=== PATIENT | male | born 1995 | race Caucasian/White ===

== ENCOUNTER 2017-12-24 15:45 | Inpatient (IN) | payer MEDICAID, OTHER ==
[2017-12-24 16:17] LABS: Urine Appearance Clear; Urine Blood 1+ (Negative); Urine Color Yellow; Urine Ketones Negative (Negative); Urine Protein Negative (Negative); Urine Specific Gravity 1.009 (1.010-1.030); Urine Urobilinogen Negative (Negative)
[2017-12-24 16:55] LABS: ABS Basophils 0.1 10^3/ul (0-0.2); ABS Eosinophils 0.1 10^3/ul (0-0.6); ABS Lymphocytes 2.2 10^3/ul (1.0-4.8); ABS Monocytes 0.8 10^3/ul (0-0.8); ABS Neutrophils 7.3 10^3/ul (1.5-7.7); ABS Nucleated RBC 0 10^3/ul; Eosinophil % 0.9 % (0-6); Hematocrit 48 % (42-52); Hemoglobin 17.1 g/dl (14.0-18.0); Lymphocyte % 20.9 % (25-47); Mean Corpuscular HGB Conc 36 g/dl (31-36); Mean Corpuscular Hemoglobin 34 pg (27-31); Mean Corpuscular Volume 95 fL (80-94); Mean Platelet Volume 8 um3 (7.4-10.4); Nucleated Red Blood Cells % 0.1; Platelet Count 242 10^3/ul (150-450); Red Blood Count 5.08 10^6/ul (4.0-5.4); Red Cell Distribution Width 13 % (10.5-15); White Blood Count 10.5 10^3/ul (3.5-10.8)
[2017-12-24 16:59] LABS: EGFR Non-African American 124.1 (>60)
--- NOTE | 2017-12-24 19:13 | ED ---
Jose Angel Greenberg Elizabeth, scribed for Inocencio Ugarte MD on 12/24/17 at 1618 . Psychiatric Complaint - HPI Summary HPI Summary: The patient is a 22 year old male presenting to the emergency department with suicidal thoughts. Per triage note, patient has been having these thoughts for several days and also has homicidal ideation. The patient denies any injuries. Patient notes that he has consumed alcohol and taken drugs recently. - History Of Current Complaint Chief Complaint: EDMentalHealth Time Seen by Provider: 12/24/17 16:00 Hx Obtained From: Patient Onset/Duration: Lasting Days, Still Present Timing: Constant Has Suicidal: Reports: With A Plan Has Homicidal: Reports: With A Plan Ingestion History: Type/Name Of Drug - Methamphetamine - Allergies/Home Medications Allergies/Adverse Reactions: Allergies Allergy/AdvReac Type Severity Reaction Status Date / Time amoxicillin Allergy Anaphylatic Verified 12/24/17 15:53 Shock clindamycin Allergy Rash Verified 12/24/17 15:53 Penicillins Allergy Rash Verified 12/24/17 15:53 PMH/Surg Hx/FS Hx/Imm Hx Sensory History: Denies: Hx Legally Blind EENT History: Denies: Hx Deafness Infectious Disease History: No Infectious Disease History: Denies: Traveled Outside the [place] in Last 30 Days - Social History Alcohol Use: Occasionally Substance Use Type: Reports: Other Substance Use Comment - Amount & Last Used: methamphetamine Smoking Status (MU): Current Some Day Smoker Review of Systems Negative: Epistaxis Psychological: Other - Suidical and homicidal ideation All Other Systems Reviewed And Are Negative: Yes Physical Exam - Summary Physical Exam Summary: General: well-appearing, no pain distress Skin: warm, color reflects adequate perfusion, dry Head: normal Eyes: EOMI, GAURANG ENT: normal Neck: supple, nontender Respiratory: CTA, breath sounds present Cardiovascular: RRR Abdomen: soft, nontender Bowel: present Musculoskeletal: normal, strength/ROM intact Neurological: normal, sensory/motor intact, A&O x3 Psychological: affect/mood appropriate Triage Information Reviewed: Yes Vital Signs On Initial Exam: Initial Vitals Temp Pulse Resp BP Pulse Ox 98.5 F 143 14 124/74 97 12/24/17 15:53 12/24/17 15:53 12/24/17 15:53 12/24/17 15:53 03/18/18 15:53 Vital Signs Reviewed: Yes Diagnostics - Vital Signs Vital Signs Temp Pulse Resp BP Pulse Ox 12/24/17 15:53 98.5 F 143 14 124/74 97 - Laboratory Lab Results: Lab Results 12/24/17 12/24/17 12/24/17 Range/Units 16:04 16:04 16:25 WBC (3.5-10.8) 10^3/ul RBC (4.0-5.4) 10^6/ul Hgb (14.0-18.0) g/dl Hct (42-52) % MCV (80-94) fL MCH (27-31) pg MCHC (31-36) g/dl RDW (10.5-15) % Plt Count (150-450) 10^3/ul MPV (7.4-10.4) um3 Neut % (Auto) (38-83) % Lymph % (Auto) (25-47) % [place] % (Auto) (0-7) % Eos % (Auto) (0-6) % Baso % (Auto) (0-2) % Absolute Neuts (auto) (1.5-7.7) 10^3/ul Absolute Lymphs (auto) (1.0-4.8) 10^3/ul Absolute Monos (auto) (0-0.8) 10^3/ul Absolute Eos (auto) (0-0.6) 10^3/ul Absolute Basos (auto) (0-0.2) 10^3/ul Absolute Nucleated RBC 10^3/ul Nucleated RBC % Sodium 134 (133-145) mmol/L Potassium 3.3 L (3.5-5.0) mmol/L Chloride 100 L (101-111) mmol/L Carbon Dioxide 25 (22-32) mmol/L Anion Gap 9 (2-11) mmol/L BUN 8 (6-24) mg/dL Creatinine 0.77 (0.67-1.17) mg/dL Est GFR ( Amer) 159.6 (>60) Est GFR (Non-Af Amer) 124.1 (>60) BUN/Creatinine Ratio 10.4 (8-20) Glucose 74 (70-100) mg/dL Calcium 9.3 (8.6-10.3) mg/dL Total Bilirubin 0.40 (0.2-1.0) mg/dL AST 28 (13-39) U/L ALT 38 (7-52) U/L Alkaline Phosphatase 72 (34-104) U/L Total Protein 7.7 (6.4-8.9) g/dL Albumin 4.6 (3.2-5.2) g/dL Globulin 3.1 (2-4) g/dL Albumin/Globulin Ratio 1.5 (1-3) TSH 1.29 (0.34-5.60) mcIU/mL Urine Color Yellow Urine Appearance Clear Urine pH 5.0 (5-9) Ur Specific [place] 1.009 L (1.010-1.030) Urine Protein Negative (Negative) Urine Ketones Negative (Negative) Urine Blood 1+ A (Negative) Urine Nitrate Negative (Negative) Urine Bilirubin Negative (Negative) Urine Urobilinogen Negative (Negative) Ur Leukocyte Esterase Trace A (Negative) Urine WBC (Auto) 1+(6-10/hpf) A (Absent) Urine RBC (Auto) Trace(0-2/hpf) (Absent) Ur Squamous Epith Cells Present A (Absent) Urine Bacteria Absent (Absent) Urine Glucose Negative (Negative) Salicylates < 2.50 (<30) mg/dL Urine Opiates Screen None detected (None Detect) Acetaminophen < 15 mcg/mL Ur Barbiturates Screen None detected (None Detect) Ur Phencyclidine Scrn None detected (None Detect) Ur Amphetamines Screen Presumptive positive A (None Detect) U Benzodiazepines Scrn None detected (None Detect) Urine Cocaine Screen None detected (None Detect) U Cannabinoids Screen None detected (None Detect) Serum Alcohol 292 H (<10) mg/dL 12/24/17 Range/Units 16:25 WBC 10.5 (3.5-10.8) 10^3/ul RBC 5.08 (4.0-5.4) 10^6/ul Hgb 17.1 (14.0-18.0) g/dl Hct 48 (42-52) % MCV 95 H (80-94) fL MCH 34 H (27-31) pg MCHC 36 (31-36) g/dl RDW 13 (10.5-15) % Plt Count 242 (150-450) 10^3/ul MPV 8 (7.4-10.4) um3 Neut % (Auto) 69.6 (38-83) % Lymph % (Auto) 20.9 L (25-47) % [place] % (Auto) 7.9 H (0-7) % Eos % (Auto) 0.9 (0-6) % Baso % (Auto) 0.7 (0-2) % Absolute Neuts (auto) 7.3 (1.5-7.7) 10^3/ul Absolute Lymphs (auto) 2.2 (1.0-4.8) 10^3/ul Absolute Monos (auto) 0.8 (0-0.8) 10^3/ul Absolute Eos (auto) 0.1 (0-0.6) 10^3/ul Absolute Basos (auto) 0.1 (0-0.2) 10^3/ul Absolute Nucleated RBC 0 10^3/ul Nucleated RBC % 0.1 Sodium (133-145) mmol/L Potassium (3.5-5.0) mmol/L Chloride (101-111) mmol/L Carbon Dioxide (22-32) mmol/L Anion Gap (2-11) mmol/L BUN (6-24) mg/dL Creatinine (0.67-1.17) mg/dL Est GFR ( Amer) (>60) Est GFR (Non-Af Amer) (>60) BUN/Creatinine Ratio (8-20) Glucose (70-100) mg/dL Calcium (8.6-10.3) mg/dL Total Bilirubin (0.2-1.0) mg/dL AST (13-39) U/L ALT (7-52) U/L Alkaline Phosphatase (34-104) U/L Total Protein (6.4-8.9) g/dL Albumin (3.2-5.2) g/dL Globulin (2-4) g/dL Albumin/Globulin Ratio (1-3) TSH (0.34-5.60) mcIU/mL Urine Color Urine Appearance Urine pH (5-9) Ur Specific [place] (1.010-1.030) Urine Protein (Negative) Urine Ketones (Negative) Urine Blood (Negative) Urine Nitrate (Negative) Urine Bilirubin (Negative) Urine Urobilinogen (Negative) Ur Leukocyte Esterase (Negative) Urine WBC (Auto) (Absent) Urine RBC (Auto) (Absent) Ur Squamous Epith Cells (Absent) Urine Bacteria (Absent) Urine Glucose (Negative) Salicylates (<30) mg/dL Urine Opiates Screen (None Detect) Acetaminophen mcg/mL Ur Barbiturates Screen (None Detect) Ur Phencyclidine Scrn (None Detect) Ur Amphetamines Screen (None Detect) U Benzodiazepines Scrn (None Detect) Urine Cocaine Screen (None Detect) U Cannabinoids Screen (None Detect) Serum Alcohol (<10) mg/dL Result Diagrams: 12/24/17 16:25 12/24/17 16:25 Lab Statement: Any lab studies that have been ordered have been reviewed, and results considered in the medical decision making process. Course/Dx - Course Course Of Treatment: Disposition and mhe pending at shift change. Signed out to Dr Washington. - Differential Dx/Clinical Impression Provider Diagnosis: Mental health problem, Acute alcohol intoxication Discharge - Discharge Plan Condition: Stable Disposition: OTHER Discharge Disposition Comment: Sign out to Dr. Washington pending Mental Health Eval. Referrals: Dipika GIRALDO,Nyasia Up [Primary Care Provider] - The documentation as recorded by the Jose Angel ykle Elizabeth accurately reflects the service I personally performed and the decisions made by me, Inocencio Ugarte MD.
[2017-12-24] MEDS ORDERED: ALPRAZolam TAB* 0.5 MG PO ONE (21:50)
[2017-12-24] MEDS ORDERED: Potassium Chlor TAB* 20 MEQ TAB.ER PO ONE (21:51)
[2017-12-25] MEDS ORDERED: ALPRAZolam TAB* 0.5 MG PO ONE (03:16)
[2017-12-25] MEDS: ALPRAZolam TAB* 0.5 MG PO PRN ×3 (08:38→20:51)
--- NOTE | 2017-12-25 08:58 | PN ---
ED Flex Patient Progress Note Date of Service: 12/25/17 Subjective: This is a 22 year-old M who is pending transfer to another psychiatric facility secondary to SI/HI ideation. Pt offers no complaints at this time. He ate and slept well. Objective: Vitals: Most recent vital signs documented below. General NAD, Alert and oriented x3. Heart: rrr at 70 bpm Lungs: CTA or with rales, rhonchi, wheezing abd: soft nontender Laboratory: Current laboratory results documented below. Assessment: SI ideation Plan: Pending psychiatric to transfer will follow up daily until accepted at different facility Condition: stable disposition: transfer Vital Signs Temp Pulse Resp BP Pulse Ox 7.4 F 148 16 129/83 98 12/25/17 00:30 12/25/17 00:30 12/25/17 08:38 12/25/17 00:30 12/25/17 00:30 Lab Results - Entire Visit 12/24/17 12/24/17 12/24/17 21:54 16:25 16:25 WBC 10.5 RBC 5.08 Hgb 17.1 Hct 48 MCV 95 H MCH 34 H MCHC 36 RDW 13 Plt Count 242 MPV 8 Neut % (Auto) 69.6 Lymph % (Auto) 20.9 L [place] % (Auto) 7.9 H Eos % (Auto) 0.9 Baso % (Auto) 0.7 Absolute Neuts (auto) 7.3 Absolute Lymphs (auto) 2.2 Absolute Monos (auto) 0.8 Absolute Eos (auto) 0.1 Absolute Basos (auto) 0.1 Absolute Nucleated RBC 0 Nucleated RBC % 0.1 Sodium 134 Potassium 3.3 L Chloride 100 L Carbon Dioxide 25 Anion Gap 9 BUN 8 Creatinine 0.77 Est GFR ( Amer) 159.6 Est GFR (Non-Af Amer) 124.1 BUN/Creatinine Ratio 10.4 Glucose 74 Calcium 9.3 Total Bilirubin 0.40 AST 28 ALT 38 Alkaline Phosphatase 72 Total Protein 7.7 Albumin 4.6 Globulin 3.1 Albumin/Globulin Ratio 1.5 TSH 1.29 Urine Color Urine Appearance Urine pH Ur Specific [place] Urine Protein Urine Ketones Urine Blood Urine Nitrate Urine Bilirubin Urine Urobilinogen Ur Leukocyte Esterase Urine WBC (Auto) Urine RBC (Auto) Ur Squamous Epith Cells Urine Bacteria Urine Glucose Salicylates < 2.50 Urine Opiates Screen Acetaminophen < 15 Ur Barbiturates Screen Ur Phencyclidine Scrn Ur Amphetamines Screen U Benzodiazepines Scrn Urine Cocaine Screen U Cannabinoids Screen Serum Alcohol 158 H 292 H 12/24/17 12/24/17 16:04 16:04 WBC RBC Hgb Hct MCV MCH MCHC RDW Plt Count MPV Neut % (Auto) Lymph % (Auto) [place] % (Auto) Eos % (Auto) Baso % (Auto) Absolute Neuts (auto) Absolute Lymphs (auto) Absolute Monos (auto) Absolute Eos (auto) Absolute Basos (auto) Absolute Nucleated RBC Nucleated RBC % Sodium Potassium Chloride Carbon Dioxide Anion Gap BUN Creatinine Est GFR ( Amer) Est GFR (Non-Af Amer) BUN/Creatinine Ratio Glucose Calcium Total Bilirubin AST ALT Alkaline Phosphatase Total Protein Albumin Globulin Albumin/Globulin Ratio TSH Urine Color Yellow Urine Appearance Clear Urine pH 5.0 Ur Specific [place] 1.009 L Urine Protein Negative Urine Ketones Negative Urine Blood 1+ A Urine Nitrate Negative Urine Bilirubin Negative Urine Urobilinogen Negative Ur Leukocyte Esterase Trace A Urine WBC (Auto) 1+(6-10/hpf) A Urine RBC (Auto) Trace(0-2/hpf) Ur Squamous Epith Cells Present A Urine Bacteria Absent Urine Glucose Negative Salicylates Urine Opiates Screen None detected Acetaminophen Ur Barbiturates Screen None detected Ur Phencyclidine Scrn None detected Ur Amphetamines Screen Presumptive positive A U Benzodiazepines Scrn None detected Urine Cocaine Screen None detected U Cannabinoids Screen None detected Serum Alcohol
[2017-12-25] MEDS ORDERED: Acetaminophen TAB* 325 MG PO PRN (12:54)
[2017-12-25] MEDS ORDERED: Al Hydrox/Mg Hydrox/Simet LIQ* 30 ML UDC PO PRN (12:54)
[2017-12-25] MEDS ORDERED: Al Hydrox/Mg Hydrox/Simet LIQ* 30 ML Q2P GAST DISTRESS PO PRN (17:00)
[2017-12-25] MEDS ORDERED: Thiamine IV* 100 MG IM X 1 ON ADMISSION IM ONE (17:00)
[2017-12-25] MEDS ORDERED: LORazepam PO 0-6 for WAM protocol PO SCH (17:00)
[2017-12-25] MEDS: Nicotine Inhaler* 10 MG AMP INH PRN ×2 (17:21→23:43)
[2017-12-25] MEDS: Nicotine GUM* 2 MG PO PRN (17:21)
[2017-12-25] MEDS: Mouth Piece, Nicotine* 1 EACH CARTRIDGE INH PRN (17:21)
[2017-12-26] MEDS: ALPRAZolam TAB* 0.5 MG PO PRN (07:44)
[2017-12-26] MEDS: Multivitamins ADULT TAB DAILY PO SCH (09:49)
[2017-12-26] MEDS: Folic Acid TAB* 1 MG DAILY PO SCH (09:49)
[2017-12-26] MEDS: Thiamine TAB* 100 MG TAB DAILY (@ T+1) PO SCH (09:50)
[2017-12-26] MEDS: Nicotine Inhaler* 10 MG AMP INH PRN ×5 (09:51→23:10)
[2017-12-26] MEDS: Nicotine GUM* 2 MG PO PRN ×3 (09:51→22:00)
[2017-12-26] MEDS: Gabapentin CAP(*) 100 MG PO SCH ×3 (13:04→20:43)
[2017-12-26] MEDS: buPROPion SR TAB.SR* 100 MG PO SCH (17:01)
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
[2017-12-27] MEDS: Nicotine Inhaler* 10 MG AMP INH PRN ×5 (08:16→22:24)
[2017-12-27] MEDS: Gabapentin CAP(*) 100 MG PO SCH ×2 (08:31→14:31)
[2017-12-27] MEDS: Folic Acid TAB* 1 MG DAILY PO SCH (08:31)
[2017-12-27] MEDS: Multivitamins ADULT TAB DAILY PO SCH (08:31)
[2017-12-27] MEDS: Thiamine TAB* 100 MG TAB DAILY (@ T+1) PO SCH (08:31)
[2017-12-27] MEDS: buPROPion SR TAB.SR* 100 MG PO SCH ×2 (08:31→17:32)
[2017-12-27] MEDS: hydrOXYzine HCL TAB* 50 MG PO PRN (14:39)
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
[2017-12-27] MEDS: Gabapentin CAP(*) 300 MG PO SCH (20:31)
[2017-12-28] MEDS: Nicotine Inhaler* 10 MG AMP INH PRN ×5 (08:45→20:35)
[2017-12-28] MEDS: Multivitamins ADULT TAB DAILY PO SCH (08:46)
[2017-12-28] MEDS: Folic Acid TAB* 1 MG DAILY PO SCH (08:46)
[2017-12-28] MEDS: Gabapentin CAP(*) 300 MG PO SCH ×2 (08:46→20:34)
[2017-12-28] MEDS: buPROPion SR TAB.SR* 100 MG PO SCH ×2 (08:46→16:50)
[2017-12-28] MEDS: Thiamine TAB* 100 MG TAB DAILY (@ T+1) PO SCH (08:47)
[2017-12-28] MEDS: hydrOXYzine HCL TAB* 50 MG PO PRN (13:07)
--- NOTE | 2017-12-28 13:30 | PN ---
<GangaTavia fierro - Last Filed: 12/28/17 13:40> Subjective - Subjective Service Type: [id number] Hosp care 15 min low complexity Subjective: Patient reports anxiety, wants to know how long Hydroxyzine takes to work as he recently took one. Encouraged to develop a list of 5 activities he could do to help him deal with his anxiety. States that he is still angry with his and brother and "bad things would happen" if he saw them at this point in time.Informed him he is no longer on [facility] protocol. He remains interested in going to inpatient detox. States he had trouble falling asleep last night but once that happened he slept well and was woken up by staff this morning. Objective - Appearance Appearance: Thin Framed Dysmorphic Features: Yes Hygiene: Normal Grooming: Disheveled - Behavior Psychomotor Activities: Abnormal-Increased - Attitude and Relatedness Attitude and Relatedness: Guarded Eye Contact: Fair - Speech Quality: Unpressured Latencies: Normal Quantity: Terse - Mood Patient's Decription of Mood: "content" - Affect Observed Affect: Tense Affect Consistent with: Dysphoria - Thought Process Thought Content: Yes Homicidal Ideation - reports HI/violent intent, No Passive Wish, No Suicidal Planning, No Paranoid Ideation - Sensorium Experiencing Hallucinations: Yes Type of Hallucinations: Visual: No, Auditory: No, Command: No - Level of Consciousness Level of Consciousness: Agitated Orientation: Yes Intact, Yes Orientated to Time, Yes Orientated to Place, Yes Orientated to Person - Impulse Control Impulse Control: Tenuous - Insight and Judgement Insight and Judgement: Poor - Group Participation Particating in Group Activities: No - Medication Management Medication Management Adherence: Yes Assessment - Assessment Merits Inpatient Hospitalization: For Immediate Safety, For Stabilization, Pending Safe DC Plan Inpatient DSM-V Dx: F10.14 Clinical Impression: 22 yo white, , domiciled male, unemployed. he present to ED with thoughts of harming self and others. He reports significant alcohol and methamphetamine use and is agreeable to substance abuse treatment. Requires continued hospitalization for immediate safety, his and others, continued evaluation and safe discharge planning. Plan - Plan Treatment Plan: Name: DONN CORDOVA Birthdate: 1995 [id number] Medications: Current Medications Acetaminophen (Tylenol Tab*) 650 mg PO Q4H PRN PRN Reason: for pain; or Temp >101 F Al Hydrox/Mg Hydrox/Simethicone (Maalox Plus*) 30 ml PO Q2H PRN PRN Reason: PRN GASTRIC DISTRESS Alprazolam (Xanax Tab*) 0.5 mg PO Q6H PRN PRN Reason: AGITATION Last Admin: 12/26/17 07:44 Dose: 0.5 mg Bupropion HCl (Wellbutrin Sr Tab*) 100 mg PO 0800,1700 [facility] Last Admin: 12/28/17 08:46 Dose: 100 mg Device (Nicotine Mouth Piece*) 1 each INH .USE WITH NICOTROL PRN PRN Reason: CRAVING Last Admin: 12/25/17 17:21 Dose: 1 each Folic Acid (Folvite Tab*) 1 mg PO DAILY [facility] Last Admin: 12/28/17 08:46 Dose: 1 mg Gabapentin (Neurontin Cap(*)) 300 mg PO BID [facility] Last Admin: 12/28/17 08:46 Dose: 300 mg Hydroxyzine HCl (Atarax Tab*) 50 mg PO Q6H PRN PRN Reason: ANXIETY Last Admin: 12/28/17 13:07 Dose: 50 mg Multivitamins/Minerals (Theragran/Minerals Tab*) 1 tab PO DAILY [facility] Last Admin: 12/28/17 08:46 Dose: 1 tab Nicotine (Nicotine Inhaler*) 10 mg INH Q2H PRN PRN Reason: CRAVING Last Admin: 12/28/17 10:46 Dose: 10 mg Nicotine Polacrilex (Nicotine Gum*) 2 mg PO Q2H PRN PRN Reason: CRAVING Last Admin: 12/26/17 22:00 Dose: 2 mg Thiamine HCl (Vitamin B-1 Tab*) 100 mg PO DAILY [facility] Last Admin: 12/28/17 08:47 Dose: 100 mg - Discharge Plan Discharge Plan: Drug/Alcohol Rehab <Ana Tejada - Last Filed: 12/28/17 15:06> Subjective - Subjective Subjective: above note reviewed and discussed with nora. HADLEY Deluca Plan - Plan Treatment Plan: Name: DONN CORDOVA Birthdate: 1995 [id number] Continued Medication Management: Start Medication Medications: Current Medications Acetaminophen (Tylenol Tab*) 650 mg PO Q4H PRN PRN Reason: for pain; or Temp >101 F Al Hydrox/Mg Hydrox/Simethicone (Maalox Plus*) 30 ml PO Q2H PRN PRN Reason: PRN GASTRIC DISTRESS Alprazolam (Xanax Tab*) 0.5 mg PO Q6H PRN PRN Reason: AGITATION Last Admin: 12/26/17 07:44 Dose: 0.5 mg Bupropion HCl (Wellbutrin Sr Tab*) 100 mg PO 0800,1700 [facility] Last Admin: 12/28/17 08:46 Dose: 100 mg Device (Nicotine Mouth Piece*) 1 each INH .USE WITH NICOTROL PRN PRN Reason: CRAVING Last Admin: 12/25/17 17:21 Dose: 1 each Folic Acid (Folvite Tab*) 1 mg PO DAILY [facility] Last Admin: 12/28/17 08:46 Dose: 1 mg Gabapentin (Neurontin Cap(*)) 300 mg PO BID [facility] Last Admin: 12/28/17 08:46 Dose: 300 mg Hydroxyzine HCl (Atarax Tab*) 50 mg PO Q6H PRN PRN Reason: ANXIETY Last Admin: 12/28/17 13:07 Dose: 50 mg Multivitamins/Minerals (Theragran/Minerals Tab*) 1 tab PO DAILY [facility] Last Admin: 12/28/17 08:46 Dose: 1 tab Nicotine (Nicotine Inhaler*) 10 mg INH Q2H PRN PRN Reason: CRAVING Last Admin: 12/28/17 10:46 Dose: 10 mg Nicotine Polacrilex (Nicotine Gum*) 2 mg PO Q2H PRN PRN Reason: CRAVING Last Admin: 12/26/17 22:00 Dose: 2 mg Thiamine HCl (Vitamin B-1 Tab*) 100 mg PO DAILY [facility] Last Admin: 12/28/17 08:47 Dose: 100 mg
--- NOTE | 2017-12-28 13:51 | PN ---
MHU: Group Therapy Note - Service Type Service Type: [id number] Group Psychotherapy - Cognitive Behavioral Group Therapy ( CBT):Patient was attentive and participatory in CBT programming this morning, and remained in good behavioral control. Patient expressed positive insights regarding relevant treatment interventions and goals.
--- NOTE | 2017-12-28 16:30 | PN ---
M[facility]: Group Therapy Note - Service Type Service Type: [id number] Group Psychotherapy - Medication Education Group: Patient was attentive and participatory in group, and remained in good behavioral control. Patient expressed positive insights regarding relevant treatment interventions. Patient stated understanding of material discussed and had appropriate questions.
[2017-12-29] MEDS: Nicotine Inhaler* 10 MG AMP INH PRN ×3 (00:10→23:30)
[2017-12-29] MEDS: buPROPion SR TAB.SR* 100 MG PO SCH ×2 (08:00→16:43)
[2017-12-29] MEDS: Gabapentin CAP(*) 300 MG PO SCH ×3 (08:00→20:40)
[2017-12-29] MEDS: Folic Acid TAB* 1 MG DAILY PO SCH (08:00)
[2017-12-29] MEDS: Thiamine TAB* 100 MG TAB DAILY (@ T+1) PO SCH (08:00)
[2017-12-29] MEDS: Multivitamins ADULT TAB DAILY PO SCH (08:00)
[2017-12-29] MEDS: Mouth Piece, Nicotine* 1 EACH CARTRIDGE INH PRN (09:34)
[2017-12-29] MEDS: hydrOXYzine HCL TAB* 50 MG PO PRN (10:00)
[2017-12-29] MEDS ORDERED: hydrOXYzine HCL TAB* 50 MG PO PRN (10:43)
--- NOTE | 2017-12-29 10:57 | PN ---
<PaulTavia - Last Filed: 12/29/17 10:46> Subjective - Subjective Service Type: [id number] Hosp care 15 min low complexity Subjective: Donn states he would like to leave the unit now; when questioned about why "I'm all better and it's time for me to go". During conversation he was able to say he was angry with all the "psychos" on the unit but refused to name anyone specifically. he reports that his roommate is okay and he doesn't need a room change. Hydroxyzine 50mg po taken 15-20 min. prior to conversation per patient. Reviewed risks of discharge today: relapse, overdose and . Encouraged him to stay in his room, use quiet room, do exercises in room, and take a shower as ways to cope with anger and anxiety. Discussed 72 hour notice as process to request discharge, informed him Hydroxyzine would be increased t oq4h prn, from current q6h prn. Objective - Appearance Appearance: Well Developed/Nourished Dysmorphic Features: Yes Hygiene: Normal Grooming: Fairly Well Kept - Behavior Psychomotor Activities: Abnormal-Increased Exhibits Abnormal Movement: Yes - Attitude and Relatedness Attitude and Relatedness: Irritable Eye Contact: Fair - Speech Quality: Unpressured Latencies: Normal Quantity: Terse - Mood Patient's Decription of Mood: "Angry" - Affect Observed Affect: Tense Affect Consistent with: Dysphoria - Thought Process Patient's Thought Process: Coherent Thought Content: Yes Homicidal Ideation, No Passive Wish, No Suicidal Planning, No Paranoid Ideation - Sensorium Experiencing Hallucinations: No, Sensorium is Clear Type of Hallucinations: Visual: No, Auditory: No, Command: No - Level of Consciousness Level of Consciousness: Agitated Orientation: Yes Intact, Yes Orientated to Time, Yes Orientated to Place, Yes Orientated to Person - Impulse Control Impulse Control: Tenuous - Insight and Judgement Insight and Judgement: Poor - Group Participation Particating in Group Activities: No - Medication Management Medication Management Adherence: Yes Assessment - Assessment Merits Inpatient Hospitalization: For Immediate Safety, Consolidate Improvements , Pending Safe DC Plan Inpatient DSM-V Dx: F10.14 Clinical Impression: 22 yo white, , domiciled male, unemployed. he present to ED with thoughts of harming self and others. He reports significant alcohol and methamphetamine use and is agreeable to substance abuse treatment. Requires continued hospitalization for immediate safety, his and others, continued evaluation and safe discharge planning. Plan - Plan Treatment Plan: Name: ODNN CORDOVA Birthdate: 1995 [id number] Medications: Current Medications Acetaminophen (Tylenol Tab*) 650 mg PO Q4H PRN PRN Reason: for pain; or Temp >101 F Al Hydrox/Mg Hydrox/Simethicone (Maalox Plus*) 30 ml PO Q2H PRN PRN Reason: PRN GASTRIC DISTRESS Bupropion HCl (Wellbutrin Sr Tab*) 100 mg PO 0800,1700 [facility] Last Admin: 12/29/17 08:00 Dose: 100 mg Device (Nicotine Mouth Piece*) 1 each INH .USE WITH NICOTROL PRN PRN Reason: CRAVING Last Admin: 12/29/17 09:34 Dose: 1 each Folic Acid (Folvite Tab*) 1 mg PO DAILY [facility] Last Admin: 12/29/17 08:00 Dose: 1 mg Gabapentin (Neurontin Cap(*)) 300 mg PO TID [facility] Hydroxyzine HCl (Atarax Tab*) 50 mg PO Q4H PRN PRN Reason: ANXIETY Multivitamins/Minerals (Theragran/Minerals Tab*) 1 tab PO DAILY [facility] Last Admin: 12/29/17 08:00 Dose: 1 tab Nicotine (Nicotine Inhaler*) 10 mg INH Q2H PRN PRN Reason: CRAVING Last Admin: 12/29/17 09:34 Dose: 10 mg Nicotine Polacrilex (Nicotine Gum*) 2 mg PO Q2H PRN PRN Reason: CRAVING Last Admin: 12/26/17 22:00 Dose: 2 mg Thiamine HCl (Vitamin B-1 Tab*) 100 mg PO DAILY [facility] Last Admin: 12/29/17 08:00 Dose: 100 mg - Discharge Plan Discharge Plan: Drug/Alcohol Rehab <Ana Tejada - Last Filed: 12/29/17 16:16> Subjective - Subjective Subjective: above note reviewed and discussed with student. Deluca. patient reassessed by fiction writer and he was calm and in behavioral control. He states agreement to remain on BSU until monday when he will be discharged to [facility]. Plan - Plan Treatment Plan: Name: DONN CORDOVA Birthdate: 1995 [id number] continue acute intensive psychiatric treatment. pending discharge to [facility] on morning of 01/01/18. Continued Medication Management: Start Medication Medications: Current Medications Acetaminophen (Tylenol Tab*) 650 mg PO Q4H PRN PRN Reason: for pain; or Temp >101 F Al Hydrox/Mg Hydrox/Simethicone (Maalox Plus*) 30 ml PO Q2H PRN PRN Reason: PRN GASTRIC DISTRESS Bupropion HCl (Wellbutrin Sr Tab*) 100 mg PO 0800,1700 [facility] Last Admin: 12/29/17 08:00 Dose: 100 mg Device (Nicotine Mouth Piece*) 1 each INH .USE WITH NICOTROL PRN PRN Reason: CRAVING Last Admin: 12/29/17 09:34 Dose: 1 each Folic Acid (Folvite Tab*) 1 mg PO DAILY [facility] Last Admin: 12/29/17 08:00 Dose: 1 mg Gabapentin (Neurontin Cap(*)) 300 mg PO TID [facility] Last Admin: 12/29/17 14:13 Dose: 300 mg Hydroxyzine HCl (Atarax Tab*) 50 mg PO Q4H PRN PRN Reason: ANXIETY Last Admin: 12/29/17 15:24 Dose: 50 mg Multivitamins/Minerals (Theragran/Minerals Tab*) 1 tab PO DAILY [facility] Last Admin: 12/29/17 08:00 Dose: 1 tab Nicotine (Nicotine Inhaler*) 10 mg INH Q2H PRN PRN Reason: CRAVING Last Admin: 12/29/17 09:34 Dose: 10 mg Nicotine Polacrilex (Nicotine Gum*) 2 mg PO Q2H PRN PRN Reason: CRAVING Last Admin: 12/26/17 22:00 Dose: 2 mg Thiamine HCl (Vitamin B-1 Tab*) 100 mg PO DAILY [facility] Last Admin: 12/29/17 08:00 Dose: 100 mg
[2017-12-30] MEDS: Gabapentin CAP(*) 300 MG PO SCH ×3 (08:09→20:44)
[2017-12-30] MEDS: Nicotine Inhaler* 10 MG AMP INH PRN ×7 (08:09→22:40)
[2017-12-30] MEDS: Folic Acid TAB* 1 MG DAILY PO SCH (08:09)
[2017-12-30] MEDS: buPROPion SR TAB.SR* 100 MG PO SCH ×2 (08:10→16:58)
[2017-12-30] MEDS: Thiamine TAB* 100 MG TAB DAILY (@ T+1) PO SCH (08:10)
[2017-12-30] MEDS: Multivitamins ADULT TAB DAILY PO SCH (09:44)
[2017-12-30] MEDS: Nicotine GUM* 2 MG PO PRN ×3 (09:44→20:51)
--- NOTE | 2017-12-30 14:44 | PN ---
Subjective - Subjective Date of Service: 12/30/17 Service Type: [id number] Hosp care 15 min low complexity Subjective: Donn happily came to see this writter and reports that he was going to a rehab program on Mon. Denies any psychiatric problems. Objective - Appearance Appearance: Well Developed/Nourished Dysmorphic Features: No Hygiene: Normal Grooming: Well Kept - Behavior Psychomotor Activities: Normal Exhibits Abnormal Movement: No - Attitude and Relatedness Attitude and Relatedness: Appropriate Eye Contact: Good - Speech Quality: Unpressured Latencies: Normal Quantity: Appropriate - Mood Patient's Decription of Mood: "Fine" - Affect Observed Affect: Non-labile Affect Consistent with: Euthymia - Thought Process Patient's Thought Process: Coherent, Goal Directed Thought Content: No Passive Wish, No Suicidal Planning, No Homicidal Ideation, No Paranoid Ideation - Sensorium Experiencing Hallucinations: No, Sensorium is Clear Type of Hallucinations: Visual: No, Auditory: No, Command: No - Level of Consciousness Level of Consciousness: Alert Orientation: Yes Intact, Yes Orientated to Time, Yes Orientated to Place, Yes Orientated to Person - Impulse Control Impulse Control: Intact - Insight and Judgement Insight and Judgement: Fair - Group Participation Particating in Group Activities: Yes - Medication Management Medication Management Adherence: Yes Assessment - Assessment Merits Inpatient Hospitalization: Consolidate Improvements, Pending Safe DC Plan Inpatient DSM-V Dx: F10.14 Clinical Impression: Doing well and safe for discharge as planned. Plan - Plan Treatment Plan: Name: DONN CORDOVA Birthdate: 1995 [id number] Continued Medication Management: Continue Outpt Medication Medications: Current Medications Acetaminophen (Tylenol Tab*) 650 mg PO Q4H PRN PRN Reason: for pain; or Temp >101 F Al Hydrox/Mg Hydrox/Simethicone (Maalox Plus*) 30 ml PO Q2H PRN PRN Reason: PRN GASTRIC DISTRESS Bupropion HCl (Wellbutrin Sr Tab*) 100 mg PO 0800,1700 [facility] Last Admin: 12/30/17 08:10 Dose: 100 mg Device (Nicotine Mouth Piece*) 1 each INH .USE WITH NICOTROL PRN PRN Reason: CRAVING Last Admin: 12/29/17 09:34 Dose: 1 each Folic Acid (Folvite Tab*) 1 mg PO DAILY [facility] Last Admin: 12/30/17 08:09 Dose: 1 mg Gabapentin (Neurontin Cap(*)) 300 mg PO TID [facility] Last Admin: 12/30/17 08:09 Dose: 300 mg Hydroxyzine HCl (Atarax Tab*) 50 mg PO Q4H PRN PRN Reason: ANXIETY Last Admin: 12/29/17 15:24 Dose: 50 mg Multivitamins/Minerals (Theragran/Minerals Tab*) 1 tab PO DAILY [facility] Last Admin: 12/30/17 09:44 Dose: 1 tab Nicotine (Nicotine Inhaler*) 10 mg INH Q2H PRN PRN Reason: CRAVING Last Admin: 12/30/17 12:54 Dose: 10 mg Nicotine Polacrilex (Nicotine Gum*) 2 mg PO Q2H PRN PRN Reason: CRAVING Last Admin: 12/30/17 09:44 Dose: 2 mg Thiamine HCl (Vitamin B-1 Tab*) 100 mg PO DAILY [facility] Last Admin: 12/30/17 08:10 Dose: 100 mg - Discharge Plan Discharge Plan: Drug/Alcohol Rehab
[2017-12-30] MEDS: Mouth Piece, Nicotine* 1 EACH CARTRIDGE INH PRN (17:55)
[2017-12-31] MEDS: Nicotine GUM* 2 MG PO PRN ×4 (07:53→18:53)
[2017-12-31] MEDS: Nicotine Inhaler* 10 MG AMP INH PRN ×5 (07:53→18:53)
[2017-12-31] MEDS: buPROPion SR TAB.SR* 100 MG PO SCH ×2 (07:54→16:47)
[2017-12-31] MEDS: Folic Acid TAB* 1 MG DAILY PO SCH (07:54)
[2017-12-31] MEDS: Gabapentin CAP(*) 300 MG PO SCH ×3 (07:54→21:41)
[2017-12-31] MEDS: Thiamine TAB* 100 MG TAB DAILY (@ T+1) PO SCH (07:54)
[2017-12-31] MEDS: Multivitamins ADULT TAB DAILY PO SCH (09:16)
[2018-01-01 08:42] VITALS: BP 146/80
[2018-01-01] MEDS: Multivitamins ADULT TAB DAILY PO SCH ×2 (09:05→09:06)
[2018-01-01] MEDS: Thiamine TAB* 100 MG TAB DAILY (@ T+1) PO SCH (09:05)
[2018-01-01] MEDS: Gabapentin CAP(*) 300 MG PO SCH (09:05)
[2018-01-01] MEDS: buPROPion SR TAB.SR* 100 MG PO SCH (09:05)
[2018-01-01] MEDS: Folic Acid TAB* 1 MG DAILY PO SCH (09:06)
[2018-01-01] MEDS: Nicotine GUM* 2 MG PO PRN (09:07)
[2018-01-01] MEDS: Nicotine Inhaler* 10 MG AMP INH PRN (09:07)
--- NOTE | 2018-01-01 16:13 | DS ---
CC: [facility]; Nyasia Bar NP, in [place] * DISCHARGE SUMMARY: DATE OF ADMISSION: 12/25/17 DATE OF DISCHARGE: 01/01/18 SUPERVISING PSYCHIATRIST: Ronald Montoya MD * (DICTATED BY RAEANN NICKERSON NP) DISCHARGE DIAGNOSES: 1. Alcohol use disorder. 2. Amphetamine use disorder. 3. Tobacco use disorder. 4. Substance-induced mood disorder. CONDITION AT THE TIME OF DISCHARGE: Improved. The patient is euthymic with bright affect. He reports readiness to attend inpatient substance use treatment at [facility]. He denied suicidal or homicidal ideations. He reviewed his discharge instructions and plan with nursing staff. The patient has been calm and in behavioral control and safe on all checks. He has participated fully in programming and been cooperative with staff and peers. MENTAL STATUS EXAM AT THE TIME OF DISCHARGE: The patient is a moderately framed white male who appears stated age. He has short brown hair, adequately groomed, wearing his own clothing. He is cooperative and answers questions fully. He is alert and oriented x3. His concentration is good. His eye contact is good. His memory is 3/3. His mood is "good." His affect is full range and congruent. Speech is soft and articulate. Thought process is logical , goal directed and circumstantial in regards to attending inpatient treatment. He denies HI or . His insight is good in that he is seeking treatment. His judgment is good in a control setting. Fund of knowledge is adequate. DISCHARGE INSTRUCTIONS GIVEN TO THE PATIENT: A. Medications: He will continue on bupropion SR twice daily, gabapentin 300 mg p.o. t.i.d., hydroxyzine 50 mg p.o. q.4 hours p.r.n. anxiety, thiamine 100 mg p.o. daily, folic acid 1 mg p.o. daily, and nicotine replacement via inhaler , gum, and patch. B. Diet: Regular. C. Activity: Ambulation as tolerated. Tobacco cessation assistance has been provided. There are no pending studies at the time of discharge. D. Followup care: The patient will follow up at [facility] for inpatient rehab, scheduled to arrive today by 11:30 a.m. and he can follow up with his primary care provider, Nyasia Bar NP, after discharge from inpatient rehab. HOSPITAL COURSE: A. Reason for admission: The patient presented to the emergency department with suicidal ideation and homicidal ideation. The patient is a 22-year- old white male , domiciled, unemployed. He reports a history of substance use and depression and anxiety. He presented to the emergency department due to recent notification that his was adulterous with his brother. The patient states he has been having a difficult time for a few months and that was "the icing on the cake." Yusuf endorses feeling depressed with vague thoughts of passive wish. He reported decreased energy, decreased motivation and concentration, anhedonia. He endorsed periods of panic attacks. The patient was insightful that he utilizes alcohol to treat anxiety and insomnia. The patient endorsed thoughts of hurting himself, hurting his brother, and hurting his . He denied access to firearms or weapons. He denies a history of self-harm or aggression. He had been staying with his mother for a few days to avoid interactions with his and brother. The patient was open about problematic drinking since age 12 as well as smoking marijuana and often using methamphetamines. He reported brief attempts at substance use treatment in the past, but did not complete the programs. The patient was agreeable. B. Psychiatric treatment rendered: The patient was admitted to the adult behavioral services unit on voluntary status. His code status was full. He was placed on 15-minute checks for safety and placed on [facility] protocol for alcohol detoxification. He did not score on the [facility] protocol. He was agreeable to titration of bupropion for depression and gabapentin for anxiety and off label use for alcohol use disorder. He was participatory in therapeutic milieu, individual sessions with staff and psychoeducational groups. Bupropion and gabapentin were both titrated to efficacy. The patient denied side effects. On 12/29/17 which was approximately the 4th or 5th day of admission, the patient presented as anxious and agitated. He was demanding to be discharged, but did not disclose details about triggering event. He reported he was frustrated with other peers. He responded well to therapeutic intervention and suggestions for coping with frustrating emotions. Later he was calm in behavioral control, he agreed to continue with hospitalization, to pursue bed-to -bed transfer for substance use treatment. The patient was calm in behavioral control as stated above. He was decreased to 30-minute observations and allowed staff pass. He was discharged via [employer] taxi at 9:30 this morning to be transported to arrive at [facility] no later than 11:30. RAEANN NICKERSON, TAPPER HELPER [id number]/CPS #: [id number] BRYAN
== END 2018-01-01 09:25 | DRG 775 ==
LOC: ED 15:45 → BSU 12-25 12:54
PROVIDERS: ADMIT Psychiatry & Neurology Psychiatry; ATTEND Psychiatry & Neurology Psychiatry
DX: F10.14 Alcohol abuse with alcohol-induced mood disorder (principal); R45.851 Suicidal ideations; R45.850 Homicidal ideations; F19.14 Other psychoactive substance abuse with psychoactive substance-induced mood disorder; Y90.8 Blood alcohol level of 240 mg/100 ml or more; F12.10 Cannabis abuse, uncomplicated; F15.10 Other stimulant abuse, uncomplicated; F17.210 Nicotine dependence, cigarettes, uncomplicated; Z88.0 Allergy status to penicillin; Z88.8 Allergy status to other drugs, medicaments and biological substances; Z81.8 Family history of other mental and behavioral disorders; Z81.3 Family history of other psychoactive substance abuse and dependence; Z81.1 Family history of alcohol abuse and dependence
CPT/HCPCS: 36415; 80053; 80061; 80307; 80320; 80329; 81003; 81015; 83036; 84443; 85025; 87086; 90853; 93005; 99222; 99231; 99238; 99283; A9270-GY; G0480

== ENCOUNTER 2018-01-29 16:36 | Emergency (ER) | payer MEDICAID, OTHER ==
[2018-01-29 16:54] VITALS: BP 143/75
[2018-01-29] MEDS ORDERED: NS 0.9% 1000 ML* 1,000 ML IV ONE (17:27)
[2018-01-29] MEDS ORDERED: LORazepam INJ* 2 MG/ML 1 ML VIAL IV PUSH ONE (17:28)
--- NOTE | 2018-01-29 17:30 | UC ---
Alexandria Greenberg Edward, scribed for Lashaun Schwartz MD on 01/29/18 at 1650 . Back Pain HPI - HPI Summary HPI Summary: 23 y/o male presents to the [facility] c/o back pain starting two days ago while at work, still present today. Pain aggravated with lying down and with cough. 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 No radiation of pain. Denies N/V, numbness/tingling. No pain like this before. Pt took Ibuprofen and naproxen earlier today for alleviation of pain without relief. PT denies fever, chills. No sob, cp. Pt denies BENDER, vision changes. Pt states he was recently on the mental health uniti for depression. pt states he drinks alcohol "all day" Pt states he has been drinking today. Pt denies any other substances. Denies PMHx DM, HTN, RI. PMHx depression and EtOH use. Pt was recently admitted in the [place] [facility] around 3 weeks ago following breakup with . Review of [facility] records, dx "amphetamine induced depression." Positive EtOH use (last 1 hr ago), smoker. On visit the pt's HR was measured 135 at triage. Pt's medications reviewed on visit. - History of Current Complaint Stated Complaint: BACK PAIN Time Seen by Provider: 01/29/18 16:48 Hx Obtained From: Patient Onset/Duration: Lasting Days, Still Present Timing: Lasting Days Severity Initially: Mild Severity Currently: Moderate Pain Intensity: 7 Pain Scale Used: 0-10 Numeric Back Pain: Is Discrete @ - lower back Character: Sharp Aggravating Factor(s): Cough, Other - lying down Associated Signs And Symptoms: Negative: Numbness, Tingling - Allergies/Home Medications Allergies/Adverse Reactions: Allergies Allergy/AdvReac Type Severity Reaction Status Date / Time amoxicillin Allergy Anaphylatic Verified 01/29/18 16:55 Shock clindamycin Allergy Rash Verified 01/29/18 16:55 Penicillins Allergy Rash Verified 01/29/18 16:55 Home Medications: Home Medications Ibuprofen TAB* [Advil TAB*] 200 mg PO Q6H PRN 01/29/18 [History Confirmed ] Naproxen Sodium [Naproxen 220 mg] 220 mg PO BID PRN 01/29/18 [History Confirmed 01/29/18] traMADol TAB* [Ultram*] 50 mg PO Q6HR PRN 01/29/18 [History Confirmed 01/29/18] PMH/Surg Hx/FS Hx/Imm Hx Previously Healthy: No Other Endocrine History: Negative: Diabetes Other Cardiovascular History: Negative: HTN, RI Psychological History: Depression - Surgical History Surgical History: Yes Surgery Procedure, Year, and Place: Appendectomy - Family History Known Family History: Positive: Unknown - Social History Occupation: Employed Part-time Lives: With Family Alcohol Use: Daily Alcohol Amount: 15 beers, approximately 350ml vodka daily Substance Use Type: Other Substance Use Comment - Amount & Last Used: "Uppers, 5-6 times a week, more if I can afford it." denies current 01/29/18 Smoking Status (MU): Heavy Every Day Tobacco Smoker - Immunization History Most Recent Influenza Vaccination: 09/2017 Most Recent Pneumonia Vaccination: Never Review of Systems Constitutional: Negative Skin: Negative Eyes: Negative ENT: Negative Respiratory: Negative Cardiovascular: Negative Gastrointestinal: Negative Genitourinary: Negative Motor: Other - back pain Neurovascular: Negative Musculoskeletal: Other: - Back pain Neurological: Negative Psychological: Anxious All Other Systems Reviewed And Are Negative: Yes Physical Exam Triage Information Reviewed: Yes Appearance: Well-Appearing, Well-Nourished, Other: - Pt became anxious and restless when discussed EKG - at this time pt reported alcohol use. Continues to deny ilicit substance Vital Signs Reviewed: Yes Eye Exam: Normal Eyes: Positive: Conjunctiva Clear ENT Exam: Normal ENT: Positive: Normal ENT inspection, Hearing grossly normal, Pharynx normal, TMs normal Dental Exam: Normal Neck exam: Normal Neck: Positive: Supple, Nontender, No Lymphadenopathy Respiratory Exam: Normal Respiratory: Positive: Chest non-tender, Lungs clear, Normal breath sounds, No respiratory distress, No accessory muscle use Cardiovascular: Positive: No Murmur, Brisk Capillary Refill, Tachycardia Abdominal Exam: Normal Abdomen Description: Positive: Nontender, No Organomegaly, Soft Bowel Sounds: Positive: Present Musculoskeletal Exam: Normal Neurological Exam: Normal Neurological: Positive: Alert Psychological Exam: Normal Psychological: Positive: Normal Response To Family Skin Exam: Normal Diagnostics - EKG Cardiac Rate: Tachycardia - 17:15 HR 163 Cardiac Rhythm: Sinus: Normal Ectopy: None ST Segment: Normal - no ST, T wave changes Back Pain Course/Dx - Course Course Of Treatment: Pt with complaint of back. Pt states thinks related to workplace injury on Sat although is not certain. Pt without other concerns. Pt noted to be tachycardic at triage. Upon further history - pt with a h/o significant alchol intact, review of records reveals h/o amphetamine use although pt denies current use. EKG: sinus tach in 160s. Will start IV. FSBG. ativan. IVF. transfer to ED by EMS. pt in agreement with plan. pt's at bedside - supportive of plan - Differential Dx/Diagnosis Provider Diagnoses: tachycardia. back pain - Physician Notifications Discussed Care With: Inocencio Ugarte Time Discussed With Above Provider: 17:31 Instructed by Provider To: Transfer - accept transfer to [facility] Discharge - Sign-Out/Discharge Documenting (check all that apply): Discharge/Admit/Transfer - Discharge Plan Condition: Good Disposition: TRANS HIGHER LVL OF CARE FAC Discharge Disposition Comment: ED by [facility] Referrals: Cirilo SOLO,Steve Miles [Primary Care Provider] - Additional Instructions: - Okay to alternate ibuprofen (Advil, Motrin) 600mg and Tylenol 1000mg every 3hours as needed for pain. Take with food. Do NOT take for more than 4-5 days. -Take flexeril - muscle relaxer as prescribed -Apply moist heat to your back for 20 minutes at a time, 4-5 times a day. Once your muscles are warm, slow gentle stretching exercises are important -Contact your doctor today to arrange a follow-up appointment next week. -If you pain is uncontrolled - go to an emergency department for further treatment - Billing Disposition and Condition Condition: GOOD Disposition: EMTALA The documentation as recorded by the Alexandria kyle Edward accurately reflects the service I personally performed and the decisions made by me, Lashaun Schwartz MD.
== END 2018-01-29 17:50 | disposition short-term general hospital (02) ==
LOC: UCEAST 16:36
DX: M54.5 Low back pain (principal); R00.0 Tachycardia, unspecified; F32.9 Major depressive disorder, single episode, unspecified; Z88.1 Allergy status to other antibiotic agents; Z88.0 Allergy status to penicillin; F17.210 Nicotine dependence, cigarettes, uncomplicated
CPT/HCPCS: 93005; 96360; 96374; 99213; G0463; J2060

== ENCOUNTER 2018-01-29 18:05 | Emergency (ER) | payer MEDICAID ==
[2018-01-29] MEDS ORDERED: Ketorolac INJ* 30 MG/ML 1 ML VIAL IV PUSH ONE (19:44)
[2018-01-29] MEDS ORDERED: NS 0.9% 1000 ML* 1,000 ML IV ONE (19:44)
[2018-01-29] MEDS ORDERED: Bupivacaine 0.25% SDV* 30 ML INJ ONE (19:45)
[2018-01-29] MEDS ORDERED: LORazepam INJ* 2 MG/ML 1 ML VIAL IV PUSH ONE (19:46)
[2018-01-29 20:16] LABS: ABS Basophils 0 10^3/ul (0-0.2); ABS Eosinophils 0 10^3/ul (0-0.6); ABS Lymphocytes 1.6 10^3/ul (1.0-4.8); ABS Monocytes 0.5 10^3/ul (0-0.8); ABS Neutrophils 4.9 10^3/ul (1.5-7.7); ABS Nucleated RBC 0 10^3/ul; Eosinophil % 0.5 % (0-6); Hematocrit 45 % (42-52); Hemoglobin 15.9 g/dl (14.0-18.0); Lymphocyte % 23.2 % (25-47); Mean Corpuscular HGB Conc 35 g/dl (31-36); Mean Corpuscular Hemoglobin 33 pg (27-31); Mean Corpuscular Volume 95 fL (80-94); Mean Platelet Volume 7.8 um3 (7.4-10.4); Nucleated Red Blood Cells % 0.1; Platelet Count 189 10^3/ul (150-450); Red Blood Count 4.78 10^6/ul (4.0-5.4); Red Cell Distribution Width 13 % (10.5-15); White Blood Count 7.1 10^3/ul (3.5-10.8)
[2018-01-29 20:33] LABS: EGFR Non-African American 114.5 (>60)
--- NOTE | 2018-01-29 21:26 | ED ---
Pedro Pablo Greenberg Rebecca, scribed for Dieudonne Victor MD on 01/29/18 at 1942 . Back Pain - HPI Summary HPI Summary: Pt is a 23 y/o M BIBA from [facility] who presents to ED c/o bilateral mid back pain. Pain began 2 days ago while at work, about midway through his shift. 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 On triage, pain was mild, ranked 3 /10. Was given 20ga LAC DRAFTING DETAILER and ativan 1mg IVP DRAFTING DETAILER. Sx unchanged by eating, aggravated by movement. Denies fever, CP, SOB. Last urinated a few hours ago. Reports he was sent from [facility] due to his elevated heart rate which he attributed to his anxiety. SHx EtOH every day - drinks about 10-15 beers a day. Has had EtOH today. - History of Current Complaint Chief Complaint: EDBackInjuryPain Stated Complaint: BACK PAIN/ELEV. HR Time Seen by Provider: 01/29/18 19:33 Hx Obtained From: Patient Onset/Duration: Lasting Days - 2 days, Still Present Onset/Duration: Still Present Back Pain Location: Is Discrete @ - Bilateral mid back Severity Currently: Mild Pain Intensity: 3 Pain Scale Used: 0-10 Numeric Aggravating Symptom(s): Movement Associated Signs And Symptoms: Positive: Negative - Allergies/Home Medications Allergies/Adverse Reactions: Allergies Allergy/AdvReac Type Severity Reaction Status Date / Time amoxicillin Allergy Anaphylatic Verified 01/29/18 16:55 Shock clindamycin Allergy Rash Verified 01/29/18 16:55 Penicillins Allergy Rash Verified 01/29/18 16:55 PMH/Surg Hx/FS Hx/Imm Hx Musculoskeletal History: Reports: Other Musculoskeletal History - Broken clavicle x 2 Sensory History: Denies: Hx Contacts or Glasses - Patient has glasses but does not wear them. , Hx Legally Blind, Hx Deafness, Hx Hearing Aid Opthamlomology History: Denies: Hx Contacts or Glasses - Patient has glasses but does not wear them. , Hx Legally Blind Psychiatric History: Reports: Hx Anxiety, Hx Depression, Hx Panic Disorder, Hx Inpatient Treatment - Rehab x 3, most recent [facility], [place], 2016 , Hx Bipolar Disorder, Hx of Violent Episodes Against Others, Hx Substance Abuse Denies: Hx Attention Deficit Hyperactivity Disorder, Hx Eating Disorder, Hx Post Traumatic Stress Disorder, Hx Community Mental Health Tx, Hx Schizophrenia , Hx Suicide Attempt, Other Psychiatric Issues/Disorders - Surgical History Surgery Procedure, Year, and Place: Appendectomy Infectious Disease History: No Infectious Disease History: Denies: Traveled Outside the [place] in Last 30 Days - Family History Known Family History: Positive: Other - Bipolar, anxiety - Social History Alcohol Use: Daily Alcohol Amount: 15 beers, approximately 350ml vodka daily Substance Use Type: Reports: Other Substance Use Comment - Amount & Last Used: "Uppers, 5-6 times a week, more if I can afford it." denies current 01/29/18 Smoking Status (MU): Heavy Every Day Tobacco Smoker Amount Used/How Often: 1 PPD Review of Systems Negative: Fever Negative: Chest Pain Negative: Shortness Of Breath Positive: Other - Bilateral mid back pain All Other Systems Reviewed And Are Negative: Yes Physical Exam - Summary Physical Exam Summary: Appearance: Well appearing, no pain distress, does not smell like alcohol, does not seem anxious Skin: warm, dry, reflects adequate perfusion Head/face: normal Eyes: EOMI, GAURANG ENT: normal Neck: supple, non-tender Respiratory: CTA, breath sounds present Cardiovascular: Tachycardic rate with regular rhythm, pulses symmetrical Abdomen: non-tender, soft Bowel Sounds: present Musculoskeletal: strength/ROM intact, slight tremor in both hands, low thoracic and high lumbar paraspinal tenderness Neuro: normal, sensory motor intact, A&Ox3 Triage Information Reviewed: Yes Vital Signs On Initial Exam: Initial Vitals Temp Pulse Resp BP Pulse Ox 99.7 F 127 16 143/84 97 01/29/18 18:10 01/29/18 18:10 01/29/18 18:10 01/29/18 18:10 01/29/18 18:10 Vital Signs Reviewed: Yes Diagnostics - Vital Signs Vital Signs Temp Pulse Resp BP Pulse Ox 01/29/18 18:10 99.7 F 127 16 143/84 97 - Laboratory Lab Results: Lab Results 01/29/18 01/29/18 Range/Units 20:08 20:08 WBC 7.1 (3.5-10.8) 10^3/ul RBC 4.78 (4.0-5.4) 10^6/ul Hgb 15.9 (14.0-18.0) g/dl Hct 45 (42-52) % MCV 95 H (80-94) fL MCH 33 H (27-31) pg MCHC 35 (31-36) g/dl RDW 13 (10.5-15) % Plt Count 189 (150-450) 10^3/ul MPV 7.8 (7.4-10.4) um3 Neut % (Auto) 68.9 (38-83) % Lymph % (Auto) 23.2 L (25-47) % Benton % (Auto) 6.9 (0-7) % Eos % (Auto) 0.5 (0-6) % Baso % (Auto) 0.5 (0-2) % Absolute Neuts (auto) 4.9 (1.5-7.7) 10^3/ul Absolute Lymphs (auto) 1.6 (1.0-4.8) 10^3/ul Absolute Monos (auto) 0.5 (0-0.8) 10^3/ul Absolute Eos (auto) 0 (0-0.6) 10^3/ul Absolute Basos (auto) 0 (0-0.2) 10^3/ul Absolute Nucleated RBC 0 10^3/ul Nucleated RBC % 0.1 Sodium 139 (139-145) mmol/L Potassium 4.0 (3.5-5.0) mmol/L Chloride 105 (101-111) mmol/L Carbon Dioxide 24 (22-32) mmol/L Anion Gap 10 (2-11) mmol/L BUN 8 (6-24) mg/dL Creatinine 0.82 (0.67-1.17) mg/dL Est GFR ( Amer) 147.2 (>60) Est GFR (Non-Af Amer) 114.5 (>60) BUN/Creatinine Ratio 9.8 (8-20) Glucose 93 (70-100) mg/dL Calcium 8.8 (8.6-10.3) mg/dL Total Bilirubin 0.50 (0.2-1.0) mg/dL AST 28 (13-39) U/L ALT 32 (7-52) U/L Alkaline Phosphatase 71 (34-104) U/L Total Protein 7.0 (6.4-8.9) g/dL Albumin 4.2 (3.2-5.2) g/dL Globulin 2.8 (2-4) g/dL Albumin/Globulin Ratio 1.5 (1-3) Lipase 19 (11.0-82.0) U/L Serum Alcohol 54 H (<10) mg/dL Result Diagrams: 01/29/18 20:08 01/29/18 20:08 Lab Statement: Any lab studies that have been ordered have been reviewed, and results considered in the medical decision making process. Re-Evaluation - Re-Evaluation First Eval Re-Evaluation Time: 20:54 Change: Improved Comment: Pt's pain has improved, without injection. Heart rate is 100 and he does not want the injection. Back Pain Course/Dx - Course Course Of Treatment: Pt sent in from for elevated HR. He has minor back pain , worse with movement and tenderness with palpation. He is a heavy drinker and has daily uncontrolled anxiety associated with that. LFTs, lipase wnl. Pain gone with tx. Did not do trigger point injection. HR down into 90s with tx and hydration. RX prn vistaril, rec cut back on drinking. D/C to f/u PMD. - Diagnoses Differential Diagnosis/HQI/PQRI: Positive: Other - pancreatitis, hepatitis, anxiety disorder, dehydration Provider Diagnoses: Strain of thoracic region, Alcoholism, Anxiety Discharge - Sign-Out/Discharge Documenting (check all that apply): Discharge/Admit/Transfer - Discharge - Discharge Plan Condition: Stable Disposition: HOME Prescriptions: Cyclobenzaprine (NF) [Cyclobenzaprine 5 MG (NF)] 5 mg PO TID PRN #8 tab PRN Reason: back pain hydrOXYzine pamoate [Vistaril] 50 mg PO TID PRN #30 capsule PRN Reason: Anxiety Patient Education Materials: Thoracic Back Strain (ED) Forms: *Work Release Referrals: [facility] [Outside] Cirilo SOLO,Steve Miles [Primary Care Provider] - Additional Instructions: Cut back on drinking. Both prescribed medications can cause drowsiness. Do not drive while taking, especially together. Ice, massage, stretching to area. Return if worse, new symptoms or other concerns. - Billing Disposition and Condition Condition: STABLE Disposition: HOME The documentation as recorded by the Pedro Pablo kyle Rebecca accurately reflects the service I personally performed and the decisions made by Valente molina Kirk, MD.
[2018-01-29 21:28] VITALS: BP 133/81
== END 2018-01-29 21:25 | disposition home or self-care (01) ==
LOC: ED 18:05
DX: S29.012A Strain of muscle and tendon of back wall of thorax, initial encounter (principal); X50.0XXA Overexertion from strenuous movement or load, initial encounter; Y93.89 Activity, other specified; Y92.511 Restaurant or cafe as the place of occurrence of the external cause; Y99.0 Civilian activity done for income or pay; F10.20 Alcohol dependence, uncomplicated; F41.0 Panic disorder [episodic paroxysmal anxiety]; F32.9 Major depressive disorder, single episode, unspecified; Z88.1 Allergy status to other antibiotic agents; Z88.0 Allergy status to penicillin; F17.210 Nicotine dependence, cigarettes, uncomplicated
CPT/HCPCS: 36415; 80053; 80320; 83690; 85025; 96374; 99285; G0480; J1885; J2060

== ENCOUNTER 2019-05-14 01:55 | Emergency (ER) | payer OTHER ==
[2019-05-14] MEDS ORDERED: ALPRAZolam TAB* 0.25 MG PO ONE (02:24)
--- NOTE | 2019-05-14 02:26 | ED ---
Psychiatric Complaint - HPI Summary HPI Summary: Pt is a 24 y/o M presenting to the ED brought in by EMS for anxiety. He states he has had multi-drug ingestion, including methamphetamines, alcohol, and marijuana. He states he believes he had a panic attack, characterized by arm numbness, SOB, and anxiety. He denies CP, nausea, vomiting, abd pain, LE edema, fever, or chills. - History Of Current Complaint Chief Complaint: EDPsychosocial Time Seen by Provider: 05/14/19 02:12 Hx Obtained From: Patient Onset/Duration: Sudden Onset, Lasting Hours, Still Present Timing: Hours Severity Initially: Moderate Severity Currently: Mild Character: Anxious Aggravating Factor(s): Alcohol Use, Drug Use Alleviating Factor(s): Nothing Associated Signs And Symptoms: Positive: Paranoid Behavior Related History: Positive For: Prior Psychiatric Issues - Allergies/Home Medications Allergies/Adverse Reactions: Allergies Allergy/AdvReac Type Severity Reaction Status Date / Time amoxicillin Allergy Anaphylatic Verified 05/14/19 02:12 Shock clindamycin Allergy Rash Verified 05/14/19 02:12 Penicillins Allergy Rash Verified 05/14/19 02:12 Home Medications: Home Medications NK [No Home Medications Reported] 05/14/19 [History Confirmed 05/14/19] PMH/Surg Hx/FS Hx/Imm Hx Previously Healthy: Yes Endocrine/Hematology History: Denies: Hx Diabetes Musculoskeletal History: Reports: Other Musculoskeletal History - Broken clavicle x 2 Sensory History: Denies: Hx Contacts or Glasses - Patient has glasses but does not wear them. , Hx Legally Blind, Hx Deafness, Hx Hearing Aid Opthamlomology History: Denies: Hx Contacts or Glasses - Patient has glasses but does not wear them. , Hx Legally Blind Psychiatric History: Reports: Hx Anxiety, Hx Depression, Hx Panic Disorder, Hx Inpatient Treatment - Rehab x 3, most recent [facility], , 2016 , Hx Bipolar Disorder, Hx of Violent Episodes Against Others, Hx Substance Abuse Denies: Hx Attention Deficit Hyperactivity Disorder, Hx Eating Disorder, Hx Post Traumatic Stress Disorder, Hx Community Mental Health Tx, Hx Schizophrenia , Hx Suicide Attempt, Other Psychiatric Issues/Disorders - Surgical History Surgery Procedure, Year, and Place: Appendectomy Infectious Disease History: No Infectious Disease History: Denies: Traveled Outside the [place] in Last 30 Days - Family History Known Family History: Positive: Other - Bipolar, anxiety - Social History Alcohol Use: Daily Alcohol Amount: 15 beers, approximately 350ml vodka daily Hx Substance Use: Yes Substance Use Type: Reports: Marijuana, Other Substance Use Comment - Amount & Last Used: meth Hx Tobacco Use: Yes Smoking Status (MU): Heavy Every Day Tobacco Smoker Amount Used/How Often: 1 PPD Review of Systems Negative: Fever, Chills Negative: Chest Pain Positive: Shortness Of Breath Negative: Abdominal Pain, Vomiting, Nausea Negative: Edema Positive: Numbness - arm Positive: Anxious All Other Systems Reviewed And Are Negative: Yes Physical Exam - Summary Physical Exam Summary: Constitutional: Well-developed, Well-nourished, Alert. (-) Distressed Skin: Warm, Dry HENT: Normocephalic; Atraumatic Eyes: Conjunctiva normal Neck: Musculoskeletal ROM normal neck. (-) JVD, (-) Stridor, (-) Tracheal deviation Cardio: Rhythm regular, rate tachycardic, Heart sounds normal; Intact distal pulses; The pedal pulses are 2+ and symmetric. Radial pulses are 2+ and symmetric. (-) Murmur Pulmonary/Chest wall: Effort normal. (-) Respiratory distress, (-) Wheezes, (-) Rales Abd: Soft, (-) tenderness, (-) Distension, (-) Guarding, (-) Rebound Musculoskeletal: (-) Edema Lymph: (-) Cervical adenopathy Neuro: Alert, Oriented x3 Psych: Mood and affect anxious Triage Information Reviewed: Yes Vital Signs On Initial Exam: Initial Vitals Temp Pulse Resp BP Pulse Ox 99.0 F 122 18 169/93 95 05/14/19 02:02 05/14/19 02:02 05/14/19 02:02 05/14/19 02:02 05/14/19 02:02 Vital Signs Reviewed: Yes Diagnostics - Vital Signs Vital Signs Temp Pulse Resp BP Pulse Ox 05/14/19 02:02 99.0 F 122 18 169/93 95 - Laboratory Lab Statement: Any lab studies that have been ordered have been reviewed, and results considered in the medical decision making process. Course/Dx - Course Course Of Treatment: Pt is a 24 y/o M presenting to the ED brought in by EMS for anxiety. He states he has had multi-drug ingestion, including methamphetamines, alcohol, and marijuana. He states he believes he had a panic attack, characterized by arm numbness, SOB, and anxiety. He denies CP, nausea, vomiting, abd pain, LE edema, fever, or chills. The pt was given Alprazolam in the ED. He states he feels better but he would like to sleep a bit more. Pt will be d/c'ed with dx of anxiety and substance abuse. He is stable and agreeable with this plan. - Differential Dx/Clinical Impression Provider Diagnosis: Anxiety, Substance abuse Discharge - Sign-Out/Discharge Documenting (check all that apply): Patient Departure Patient Received Moderate/Deep Sedation with Procedure: No - Discharge Plan Condition: Stable Disposition: HOME Patient Education Materials: Anxiety (ED) Print Language: [place] Referrals: Cirilo SOLO,Steve Miles [Primary Care Provider] - - Billing Disposition and Condition Condition: STABLE Disposition: Home - Attestation Statements Document Initiated by Brianneibe: Yes Documenting Scribe: Shakila Peterson Provider For Whom Christopher is Documenting (Include Credential): Darline Rivera MD. Scribe Attestation: Shakila Greenberg, scribed for Darline Naqvi MD. on 05/14/19 at 0707. Scribe Documentation Reviewed: Yes Provider Attestation: The documentation as recorded by the scribeShakila accurately reflects the service I personally performed and the decisions made by me, Darline Naqvi MD. Status of Scribe Document: Viewed
[2019-05-14 07:59] VITALS: BP 111/54
== END 2019-05-14 07:56 | disposition home or self-care (01) ==
LOC: ED 01:55
DX: F41.9 Anxiety disorder, unspecified (principal); F19.10 Other psychoactive substance abuse, uncomplicated; F17.210 Nicotine dependence, cigarettes, uncomplicated; Z88.1 Allergy status to other antibiotic agents; Z88.0 Allergy status to penicillin
CPT/HCPCS: 99283; A9270-GY